=== PATIENT | female | born 1945 | race Caucasian/White ===

== ENCOUNTER 2021-08-14 13:57 | Outpatient (CLI) | payer MEDICARE | END 2021-08-14 13:58 | disposition home or self-care (01) | LOC: CSHMRI 13:57 | PROVIDERS: ATTEND Specialist | DX: M51.17 Intervertebral disc disorders with radiculopathy, lumbosacral region (principal); M47.816 Spondylosis without myelopathy or radiculopathy, lumbar region; M51.06 Intervertebral disc disorders with myelopathy, lumbar region | CPT/HCPCS: 72148 ==

== ENCOUNTER 2022-09-18 13:08 | Outpatient (CLI) | payer MEDICARE | END 2022-09-18 13:09 | disposition home or self-care (01) | LOC: CSHLAB 13:08 | PROVIDERS: ATTEND Podiatrist Foot & Ankle Surgery | DX: Z01.818 Encounter for other preprocedural examination (principal); M20.21 Hallux rigidus, right foot | CPT/HCPCS: 93005; 93010 ==

== ENCOUNTER 2022-09-24 11:13 | Day surgery (SDC) | payer MEDICARE ==
[2022-09-19 09:58] VITALS: BMI 26.2
[2022-09-24] MEDS ORDERED: Bupivacaine HCl 0.5%/Epinephrine 1:200,000/PF 30 ml Vial ONE (13:12)
[2022-09-24] MEDS ORDERED: Ropivacaine 0.2% 550 ML 550 ML NERVE BLCK SCH (13:15)
[2022-09-24] MEDS ORDERED: Fentanyl 250 MCG/5 ML VIAL ONE (13:20)
[2022-09-24] MEDS ORDERED: PROPOFOL 20 ML ONE ×2 (13:20)
[2022-09-24] MEDS ORDERED: Ondansetron PF 4 MG/2 ML Vial ONE (13:23)
[2022-09-24] MEDS ORDERED: Dexamethasone 20 MG/5 ML VIAL ONE (13:23)
[2022-09-24] MEDS ORDERED: CEFAZOLIN 2 GM VIAL ONE (13:36)
[2022-09-24] MEDS ORDERED: Glycopyrrolate 0.2 MG/ML 5 ML SYRINGE ONE (14:29)
[2022-09-24] MEDS ORDERED: ePHEDrine Sulfate 50 MG/10 ML VIAL ONE (14:31)
== END 2022-09-24 16:20 | disposition home or self-care (01) ==
LOC: CSHSDC 11:13
PROVIDERS: ATTEND Podiatrist Foot & Ankle Surgery
PROC: 0SGM0JZ Fusion of Right Metatarsal-Phalangeal Joint with Synthetic Substitute, Open Approach (ICD-10-PCS; principal; 2022-09-24)
DX: M20.21 Hallux rigidus, right foot (principal); M19.071 Primary osteoarthritis, right ankle and foot; M79.671 Pain in right foot; M19.072 Primary osteoarthritis, left ankle and foot; M79.672 Pain in left foot; M10.9 Gout, unspecified; Z88.5 Allergy status to narcotic agent; Z79.899 Other long term (current) drug therapy
CPT/HCPCS: 28291; 73630; A4306; C1713 ×2; C1776 ×2; J1100; J2405; J2704; J2795; J3010